=== PATIENT | male | born 1985 | race Caucasian/White ===

== ENCOUNTER 2021-06-27 18:39 | Emergency (ER) | payer BC, SELFPAY ==
[2021-06-27 19:34] VITALS: BP 162/85; PULSE 61; RESP 18; TEMP 36.8; O2SAT 99; BMI 23.8
[2021-06-27 19:37] VITALS: BP 0/0; PULSE 28; RESP 18; TEMP 36.6
--- NOTE | 2021-06-27 19:44 | HMH.EDUTC ---
[facility] [place] [facility] [place] Clinical Impression: Exposure to COVID-19 virus Disposition: Home, Self-Care Condition on Discharge: Good Instructions: DI for COVID-19 (Suspected or Confirmed ), Preventing the Spread of Coronavirus Discharge Instructions Additional Instructions: Drink plenty of fluids. Take tylenol for pain or fever. Return if you begin to have difficulty breathing. Follow up with your regular doctor. GO TO THE ER FOR ANY WORSENING SYMPTOMS Quarantine until you know the results of your covid-19 test. If it is positive, the health department should call you and give you further instructions about your length of Quarantine and other things. Notify your school or workplace of your results and follow their instructions regarding return to work/school. Referrals: Provider,Referral, [Primary Care Provider] - Time of Disposition: 19:47 Medical Decision Making - Medical Records Medical records reviewed: No: I reviewed the patient's medical records. - Gumaro Inquiry Pt receiving controlled substance: No Vital Signs: 06/27/21 19:34 06/27/21 19:37 Temperature 98.3 F 98 F Temperature Source Oral Pulse Rate 28 L Pulse Rate [Left] 61 Respiratory Rate 18 18 Blood Pressure 0/0 L Blood Pressure [Right Arm] 162/85 H Blood Pressure Mean [Right Arm] 110 02 Sat by Pulse Oximetry 99 Orders (Tests/Meds): ORDERS Category Date Time Status Covid-19 Nasal PCR ([facility]) Routine Lab 06/27/21 19:35 Received [facility] [place] [facility] [place] - General Stated complaint: covid test Time Seen by Provider: 06/27/21 19:44 Mode of Arrival: Ambulatory Source of Information: Patient Limitations: No Limitations Description of Symptoms (Recalled from Triage Doc. by RN): PT IS ASYMPTOMATIC. 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 HEENT Symptoms (Recalled from RN notes): No Resp Symptoms (Recalled from RN notes): No Skin Symptoms (Recalled from RN notes): No MS Symptoms (Recalled from RN notes): No Functional Status (Recalled from RN notes): NA - History of Present Illness Provider Complaint: He was exposed to covid-19 at his job. He denies any symptoms but he was instructed to get a covid test. - Related Data Allergies Allergy/AdvReac Type Severity Reaction Status Date / Time No Known Allergies Allergy Verified 06/27/21 19:37 - Worker's Comp Is this a Worker's Comp case?: No H History - Hepatitis A Screen Drug use history?: No High risk sexual behaviors?: No History of sexually transmitted infection?: No Currently employed?: No Childcare worker?: No Do you have indoor plumbing?: Yes Do you have electricity?: Yes Attestation statement:: This patient has been screened for Hepatitis A risk factors. I have reviewed the patient's past medical history: Yes ROS Obtained: Yes All systems reviewed & no additional complaints - Constitutional Constitutional: Reports system reviewed and no additional complaints, except as docu - Eyes Eyes: Reports system reviewed and no additional complaints, except as docu - ENT Ears, Nose, Mouth, and Throat: Reports system reviewed and no additional complaints, except as docu - Cardiovascular Cardiovascular: Reports system reviewed and no additional complaints, except as docu - Respiratory Respiratory: Reports system reviewed and no additional complaints, except as docu - Gastrointestinal Gastrointestingal: Reports: system reviewed and no additional complaints, except as docu Physical Exam - General General appearance: alert, in no apparent distress - Head Head exam: atraumatic, normocephalic, normal inspection - Eye Eye exam: Present: normal appearance, PERRL, EOMI - ENT ENT exam: Present: normal exam, normal oropharynx, mucous membranes moist, TM's normal bilaterally, normal external ear exam - Neck Neck exam: Present: normal inspection, full ROM, trachea midline. Absent: meningismus, lymphadenopathy - Chest Chest inspection: Present: normal
== END 2021-06-27 20:09 | disposition home or self-care (01) ==
PROVIDERS: Emergency Provider Nurse Practitioner Family
DX: Z20.822 Contact with and (suspected) exposure to COVID-19 (principal)
CPT/HCPCS: 99202; G0463; U0003

== ENCOUNTER 2022-05-18 09:01 | Emergency (ER) | payer BC, SELFPAY ==
[2022-05-18 09:09] VITALS: BP 144/77; PULSE 60; RESP 17; TEMP 36.7; O2SAT 100; BMI 22.1
[2022-05-18 09:15] VITALS: BP 144/77; PULSE 60; RESP 17; TEMP 36.7; O2SAT 100; BMI 22.1
--- NOTE | 2022-05-18 09:22 | HMH.EDUTC ---
[facility] [place] Disposition Clinical Impression: Urticaria Disposition: Home, Self-Care Condition on Discharge: Good Instructions: Hives, DI for Hives, Prednisone Additional Instructions: Look around and make sure that nothing has changed soap lotion etc Start oral steriods tomorrow Over the counter Benadryl may help with itching Follow up with your Family Doctor if rash worsens or does not clear up Return if needed Straight to ER if any life threatening symptoms Prescriptions: predniSONE [Prednisone 5mg Tab Dose-Pack] 5 mg PO UD DOSE PK 6 Days #21 tab Transmission Status: Pending to [facility] #[id number] Referrals: Provider,Referral, MD [Primary Care Provider] - As needed Time of Disposition: 09:58 Medical Decision Making - Gumaro Inquiry Pt receiving controlled substance: No Gumaro was queried for this patient: No Vital Signs: 05/18/22 09:09 05/18/22 09:15 05/18/22 09:44 Temperature 98.0 F 98.0 F 98.0 F Temperature Source Oral Oral Pulse Rate 60 Pulse Rate [Brachial] 60 60 Respiratory Rate 17 17 17 Blood Pressure 144/77 H Blood Pressure [Right Arm] 144/77 H 144/77 H Blood Pressure Mean [Right Arm] 99 99 Blood Pressure Source [Right Arm] Automatic Cuff Automatic Cuff Blood Pressure Position [Right Arm] Sitting Sitting 02 Sat by Pulse Oximetry 100 100 Oxygen Delivery Method Room Air Room Air Orders (Tests/Meds): ED MEDICATIONS Discontinued Medications Generic Name Dose Route Start Last Admin Trade Name Malachiq PRN Reason Stop Dose Admin Famotidine 20 mg 05/18/22 09:25 05/18/22 09:43 Famotidine 20mg Tablet PO 05/18/22 09:26 20 mg ONCE ONE Administration Loratadine 10 mg 05/18/22 09:26 05/18/22 09:43 Loratadine 10mg Tablet PO 05/18/22 09:27 10 mg ONCE ONE Administration Methylprednisolone Sodium Succinate 125 mg 05/18/22 09:25 05/18/22 09:43 Methylprednisolone Sod Succ 125mg Vial IM 05/18/22 09:26 125 mg ONCE ONE Administration [facility] [place] HPI - General Stated complaint: rash Time Seen by Provider: 05/18/22 09:23 Mode of Arrival: Ambulatory Source of Information: Patient Limitations: No Limitations Description of Symptoms (Recalled from Triage Doc. by RN): PATIENT C/O RASH TO BILATERAL FOREARMS AND BLE THAT STARTED LAST NIGHT AND WAS WORSE THIS MORNING. DENIES ITCHING OR PAIN HEENT Symptoms (Recalled from RN notes): No Resp Symptoms (Recalled from RN notes): No Skin Symptoms (Recalled from RN notes): Yes MS Symptoms (Recalled from RN notes): No Functional Status (Recalled from RN notes): WNL - History of Present Illness Provider Complaint: Patient states that they cut the weeds down in a field and he walked through the field shortly after and he noticed he was breaking out in rash all over both forearms on both legs States that he took tylenol earlier and thinks it may have helped it to look better but he came in to get it checked Denies changing anything at home - Related Data Previous Rx's Medication Instructions Recorded predniSONE [Prednisone 5mg Tab 5 mg PO UD DOSE PK 6 Days #21 tab 05/18/22 Dose-Pack] Allergies Allergy/AdvReac Type Severity Reaction Status Date / Time No Known Allergies Allergy Verified 09/16/21 15:59 - Worker's Comp Is this a Worker's Comp case?: No [facility] History - Hepatitis A Screen Attestation statement:: This patient has been screened for Hepatitis A risk factors. I have reviewed the patient's past medical history: Yes Other Surgeries: Yes: No Previous Surgery Amputation: No Fractures: No - Social History Smoking Status: Never smoker Alcohol Intake: current Alcohol Intake Frequency:: holidays/special occasions only Substance Use Type: denies use Occupational Status: employed Housing: house Household Members: family Family Hx:: Unable to obtain ROS Obtained: Yes All systems reviewed & no additional complaints, Yes Systems reviewed as appropriate & no additional complaints - Constitutiona
[2022-05-18 09:44] VITALS: BP 144/77; PULSE 60; RESP 17; TEMP 36.7; O2SAT 100
== END 2022-05-18 10:05 | disposition home or self-care (01) ==
LOC: ER 09:11 → UTC 09:11
PROVIDERS: Emergency Provider Nurse Practitioner
DX: L50.9 Urticaria, unspecified (principal)
CPT/HCPCS: 96372; 99212; G0463

== ENCOUNTER → 2023-03-23 10:21 | Outpatient (CLI) | payer BC, SELFPAY ==
--- NOTE | 2023-03-23 10:27 | XR_ITS ---
FINAL REPORT CLINICAL HISTORY: left arm pain FINDINGS: Left wrist Three views were obtained. There is no acute fracture or dislocation. The joint spaces appear normal. No soft tissue abnormality is identified. IMPRESSION: No acute process. Reviewed, Interpreted and Dictated by Brian Owens III, MD Transcribed by Nelli Platt Authenticated and [facility]
--- NOTE | 2023-03-23 10:27 | XR_ITS ---
FINAL REPORT CLINICAL HISTORY: left arm and wrist pain FINDINGS: Left forearm Two views were obtained. There is no acute fracture or dislocation. The joint spaces appear normal. No soft tissue abnormality is identified. IMPRESSION: No acute process. Reviewed, Interpreted and Dictated by Brian Owens III, MD Transcribed by Nelli Platt Authenticated and [facility]
== END ==
PROVIDERS: Visit Provider Nurse Practitioner Family
DX: M79.602 Pain in left arm (principal); M79.89 Other specified soft tissue disorders; M25.532 Pain in left wrist
CPT/HCPCS: 73090; 73110